=== PATIENT | male | born 1945 | race Caucasian/White ===

== ENCOUNTER 2021-02-10 01:30 | Day surgery (SDC) | payer MEDICARE, SELFPAY ==
[2021-02-03 10:42] VITALS: BMI 32.5
[2021-02-10 06:02] VITALS: BP 149/77; PULSE 63; RESP 20; TEMP 36.6; O2SAT 100
[2021-02-10] MEDS: LACTATED RINGERS 1,000 ML 30 ML IV CONT (06:30)
--- NOTE | 2021-02-10 07:15 | WPDANESEPPF ---
Anes - Initial Pre Proc Eval Procedure: Operation Date: 02/10/21 07:30 Proposed Procedures p Excision of Basal Cell Carcinoma Nasal Tip, with Frozen Section, with Possible Local Tissue Transfer - Amadeo Tillman MD Date/Time: 02/10/21 07:15 Surgeon: Amadeo Tillman MD Pre Op Diagnosis: basal cell carcinoma nasal tip Patient Data Age: 75 Gender: M Height: 1.93 m Weight: 120.8 kg Last Vital Signs Temp 97.9 F 02/10/21 06:02 Pulse 63 02/10/21 06:02 Resp 20 02/10/21 06:02 BP 149/77 H 02/10/21 06:02 Pulse Ox 100 02/10/21 06:02 Allergies Allergy/AdvReac Type Severity Reaction Status Date / Time No Known Allergies Allergy Unverified 02/10/21 06:21 Home Medications Medication Instructions Recorded Confirmed Type allopurinol 100 mg PO QAM 02/03/21 02/10/21 History amlodipine 5 mg PO QAM 02/03/21 02/10/21 History cholecalciferol (vitamin D3) 50 mcg PO HS 02/03/21 02/10/21 History cyanocobalamin (vitamin B-12) 1,000 mcg IM MONTHLY 02/03/21 02/10/21 History doxycycline hyclate 100 mg PO BID 02/03/21 02/03/21 History ergocalciferol (vitamin D2) 50,000 unit PO WEEKLY 02/03/21 02/10/21 History lisinopril 40 mg PO QAM 02/03/21 02/10/21 History loperamide 2 mg PO HS 02/03/21 02/10/21 History loperamide 4 mg PO QAM 02/03/21 02/10/21 History omeprazole 20 mg PO DAILY 02/03/21 02/10/21 History valacyclovir 500 mg PO DAILY 02/03/21 02/10/21 History vitamin A-vitamin C-vit E-min 1 tablet PO BID 02/03/21 02/10/21 History [Ocuvite] vitamin B complex [B Complete] 1 tablet PO DAILY 02/03/21 02/10/21 History Patient hx anesthesia problems: none Family hx anesthesia problems: none PMFSH Family History Family History (Updated 01/23/14 @ 07:13 by DOCTOR UNKNOWN) Mother Family history of lung cancer Family history of primary malignant neoplasm of liver Sibling Family history of lymphoma Acute myocardial infarction Father Family history of heart disease in male family member before age 55 Other Hypertension Social History Social History Smoking status: Never smoker Alcohol intake: current Drinks per week: 14 Living arrangements: with family Spiritual care concerns: No Anes - Eval Final PreProcedure Day of Procedure 02/10/21 07:15 Patient weight: obese Heart: regular rate and rhythm Lungs: clear to auscultation Airway: Mallampati scale class II Neurological: alert and oriented Last oral intake: >/= 8 hours ASA classification: III Emergent: no Anesthetic plan: proceed Anesthesia type and monitoring: general GIVS and LMA and standard monitoring Informed Consent: The patient's anesthetic plan and its attendant risks and benefits were discussed with the patient/family/POA. Questions were solicited and answers provided to the satisfaction of the patient/family/POA.
--- NOTE | 2021-02-10 07:19 | WPDHPUPDATE1 ---
History and Physical Update Update Date/Time: 02/10/21 07:19 History and Physical has been reviewed, including an updated exam of the patient. There are NO changes in the patient's condition. Risks, benefits, and alternatives have been discussed and questions answered. Patient agrees to proceed with procedure.
[2021-02-10] MEDS: LIDO 1%/EPINEPHRINE 1:100,000 50 ML VIAL INFILTRATE (07:48)
--- NOTE | 2021-02-10 07:57 | SUR.OPER ---
Addendum entered by Philippe Tang RN 02/10/21 08:23: 0812 Original Note: Incision - 0748 Excision- 0752 Out of Room- 0752 with KELLEN Quezada Handoff in Path- to Jenn 0756 Report from Pathologist to Dr. Tillman-
[2021-02-10 08:29] VITALS: BP 115/74; PULSE 86; RESP 14; O2SAT 97
--- NOTE | 2021-02-10 08:34 | P.OP_ITS ---
Procedure Note - Detailed Date of Procedure 02/10/21 Pre-op Diagnosis basal cell carcinoma nasal tip Post-op Diagnosis same Procedure Performed 1 cm excision of basal cell carcinoma of the nasal tip with frozen section and complex repair 4 cm Surgeon Amadeo Tillman MD Anesthesia MAC Indications Prior biopsy Findings BCC Description of Procedure The prior surgical site on the patient's nose was marked in the preop. He was taken to the operating room and placed supine on the operating table. A time- out was held and confirmed. He was given IV sedation. The face was prepped and draped in usual fashion. The site was carefully examined and the entire scarred area was marked for excision. This area was widely infiltrated with 1% lidocaine with epinephrine. The full-thickness skin ellipse was taken. The caudal and was marked with a suture for 12 o'clock. The specimen was sent to frozen section. The pathologist confirmed the presence of basal cell carcinoma but margins were free. The length of the specimen was approximately 1.5 cm with a width of 1 cm. The skin margins were elevated beyond 1 cm to both sides of the nose with scissors. This allowed wound margins which were scarred to advance to the midline. The large standing cone was excised from the cephalad end . The wound was closed with intradermal 4-0 Vicryl and running 5 0 nylon. Patient was discharged with instructions in wound care and follow-up. No prescriptions were sent. Estimated Blood Loss 5 Drains No Packing No Pathology yes Complications No immediate complications Condition stable Disposition same day
[2021-02-10 08:59] VITALS: BP 129/78; PULSE 63; RESP 14; O2SAT 98
[2021-02-10 09:30] VITALS: BP 128/72; PULSE 60; RESP 14
== END 2021-02-10 09:40 | disposition home or self-care (01) ==
PROVIDERS: PCP Family Medicine; Visit Provider Plastic Surgery
PROC: (CPT 11641; principal; 2021-02-10 07:30)
DX: C44.311 Basal cell carcinoma of skin of nose (principal); E66.9 Obesity, unspecified; Z68.32 Body mass index [BMI] 32.0-32.9, adult
CPT/HCPCS: 11641; 13152; 88305; 88331; A9270; J2704; J3010; J7120